=== PATIENT | female | born 1975 | race American Indian/Alaskan Native ===

== ENCOUNTER 2017-05-16 15:27 | Emergency (ER) | payer BC ==
[2017-05-16 15:27] VITALS: BMI 29.6
[2017-05-16 16:00] VITALS: O2SAT 100
[2017-05-16 16:08] VITALS: RESP 19
--- NOTE | 2017-05-16 17:38 | CT ---
PROCEDURE: CT HEAD WITHOUT CONTRAST. HISTORY: headache COMPARISON: None available. TECHNIQUE: Axial computed tomography images were obtained through the head/brain without intravenous contrast. Radiation dose: Total exam DLP = 775 mGy-cm. This CT exam was performed using one or more of the following dose reduction techniques: Automated exposure control, adjustment of the mA and/or kV according to patient size, and/or use of iterative reconstruction technique. FINDINGS: HEMORRHAGE: No intracranial hemorrhage. BRAIN: No mass effect or edema. No atrophy or chronic microvascular ischemic changes. VENTRICLES: Unremarkable. No hydrocephalus. CALVARIUM: Unremarkable. PARANASAL SINUSES: Unremarkable as visualized. No significant inflammatory changes. MASTOID AIR CELLS: Unremarkable as visualized. No inflammatory changes. OTHER FINDINGS: None. IMPRESSION: No acute findings
--- NOTE | 2017-05-16 17:50 | ED PDOC ---
Arrival/HPI - General Chief Complaint: High Blood Pressure Time Seen by Provider: 05/16/17 15:54 Historian: Patient - History of Present Illness Narrative History of Present Illness (Text): 05/16/17 17:46 42yo female with PMhx of hypertension present with complaint of elevated BP and headache. Notes that she took her antihypertensive a month ago. Noted elevated BP yesterday (170/112) and was seen at [facility] [place]. States she was treated with Lisinopril and DC home. She was instructed to return to ED if BP remain elevated. She came to ED today because of persistent BP 160/60 and headache. Reports 2episodes of vomiting today. States she took Lisnopril this morning. She otherwise denies any focal weakness, visual acuity changes, abdominal pain, ripping/tearing upper back pain, fever, neck pain, any other complaint. Past Medical History - Provider Review Nursing Documentation Reviewed: Yes - Infectious Disease Hx of Infectious Diseases: None - Tetanus Immunization Tetanus Immunization: Unknown - Cardiac Hx Hypertension: Yes - Psychiatric Hx Depression: No Hx Emotional Abuse: No Hx Physical Abuse: No Hx Substance Use: No - Surgical History Hx Gastric Bypass Surgery: Yes (07/08) - Anesthesia Hx Anesthesia: Yes Hx Anesthesia Reactions: No Hx Malignant Hyperthermia: No - Suicidal Assessment Feels Threatened In Home Enviroment: No Family/Social History - Physician Review Nursing Documentation Reviewed: Yes Family/Social History: Unknown Family HX Smoking Status: Never Smoked Hx Alcohol Use: No Hx Substance Use: No Hx Substance Use Treatment: No Allergies/Home Meds Allergies/Adverse Reactions: Allergies No Known Allergies Allergy (Verified 05/16/17 16:00) Home Medications: Home Meds Medication Instructions Recorded Confirmed Lisinopril [Lisinopril] 5 mg PO DAILY 10/12/14 05/16/17 Review of Systems - Physician Review All systems were reviewed & negative as marked: Yes - Review of Systems Constitutional: Normal Eyes: Normal ENT: Normal Respiratory: Normal Cardiovascular: Normal Gastrointestinal: Nausea, Vomiting. absent: Abdominal Pain Genitourinary Female: Normal Musculoskeletal: Normal Skin: Normal Neurological: Headache. absent: Dizziness, Focal Weakness, Speech Changes Endocrine: Normal Hemo/Lymphatic: Normal Psychiatric: Normal Physical Exam Vital Signs Reviewed: Yes Vital Signs Temp Pulse Resp BP BP Pulse Ox 05/16/17 16:08 151/62 H 05/16/17 16:06 98.2 F 86 19 151/62 H 100 05/16/17 15:55 98 F 114 H 20 115/62 100 Temperature: Afebrile Blood Pressure: Normal Pulse: Regular Respiratory Rate: Normal Appearance: Positive for: Well-Appearing, Non-Toxic, Comfortable, Other ( Morbidly obese) Pain Distress: None Mental Status: Positive for: Alert and Oriented X 3 - Systems Exam Head: Present: Atraumatic, Normocephalic Pupils: Present: PERRL Extroacular Muscles: Present: EOMI Conjunctiva: Present: Normal Mouth: Present: Moist Mucous Membranes Neck: Present: Normal Range of Motion Respiratory/Chest: Present: Clear to Auscultation, Good Air Exchange. No: Respiratory Distress, Accessory Muscle Use Cardiovascular: Present: Regular Rate and Rhythm, Normal S1, S2. No: Murmurs Abdomen: Present: Normal Bowel Sounds. No: Tenderness, Distention, Peritoneal Signs, Rebound, Guarding, McBurney's Point Tender, Rovsing's Sign Present Back: Present: Normal Inspection Upper Extremity: Present: Normal Inspection. No: Cyanosis, Edema Lower Extremity: Present: Normal Inspection. No: Edema Neurological: Present: GCS=15, CN II-XII Intact, Speech Normal, Motor Func Grossly Intact, Normal Sensory Function, Normal Cerebellar Funct, Gait Normal, Memory Normal, Normal 2Pt Descrimination, Other (No focal neurological deficit) Skin: Present: Warm, Dry, Normal Color. No: Rashes Psychiatric: Present: Alert, Oriented x 3, Normal Insight, Normal Concentration Medical Decision Making ED Course and Treatment: 05/16/17 17:51 42yo female present with elevated BP, headache and vomiting. PT was neurological intact and hemodynamically stable in ED. Her BP improved in ED . She was given Zofran and Tylenol in ED. On re evaluation she notes that her symptoms resolved in ED. Head CT : Normal Result was DW the pt. she was advised to continue with her medication. Referred to her PMD. TRT ED for any new or worsening symptoms. - RAD Interpretation Radiology Orders: 05/16/17 16:21 HEAD W/O CONTRAST [CT] Stat - Medication Orders Current Medication Orders: Discontinued Medications Acetaminophen (Tylenol 325mg Tab) 650 mg PO STAT STA Stop: 05/16/17 16:22 Last Admin: 05/16/17 16:52 Dose: 650 mg MAR Pain/Vitals Document 05/16/17 16:52 LA (Rec: 05/16/17 16:55 LA [facility] [id number]) Pain Reassessment Is This A Pain ReAssessment? No Sleep Is patient sleeping during reassessment? No Presence of Pain Presence of Pain Yes Pain Scale Used Pain Scale Used Numeric Location Description Constant Intensity 9 Scale Used Numeric Pain Behavior Facial Grimacing Ondansetron HCl (Zofran Odt) 4 mg PO STAT STA Stop: 05/16/17 16:22 Last Admin: 05/16/17 16:56 Dose: 4 mg Disposition/Present on Arrival - Present on Arrival Any Indicators Present on Arrival: No History of DVT/PE: No History of Uncontrolled Diabetes: No Urinary Catheter: No History of Decub. Ulcer: No History Surgical Site Infection Following: None - Disposition Have Diagnosis and Disposition been Completed?: Yes Diagnosis: Headache, Hypertension, Vomiting Disposition: HOME/ ROUTINE Disposition Time: 17:55 Patient Plan: Discharge Condition: STABLE Discharge Instructions (ExitCare): Acute Headache (ED), Acute Nausea and Vomiting (ED) Additional Instructions: Follow up with your Doctor Continue with your medication Return to ED for any new or worsening symptoms Prescriptions: Ondansetron ODT [Zofran ODT] 4 mg PO Q6 #9 odt Referrals: Ceci Rosales MD [Primary Care Provider] - Follow up with primary
[2017-05-16 18:06] VITALS: BP 151/80; PULSE 63
[2017-05-16 18:11] VITALS: TEMP 98
== END 2017-05-16 18:13 | disposition home or self-care (01) ==
LOC: ED 15:27
DX: I10 Essential (primary) hypertension (principal); R51 Headache; R11.10 Vomiting, unspecified